=== PATIENT | male | born 2000 | race Caucasian/White ===

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

== ENCOUNTER 2020-03-30 04:30 | Emergency (ER) | payer OTHER ==
[~2020-03-30] VITALS: Ht 167.6 cm; Wt 46.4 kg
[2020-03-30 04:36] VITALS: Ht 167.6 cm; Wt 46.4 kg
[2020-03-30 05:54] VITALS: BP 97/55
== END 2020-03-30 05:54 | disposition home or self-care (01) ==
LOC: ED 04:30
DX: R10.13 Epigastric pain (principal); R11.0 Nausea
CPT/HCPCS: Q0162